=== PATIENT | male | born 1995 | race Caucasian/White ===

== ENCOUNTER 2017-09-09 19:45 | Emergency (ER) | payer BC, OTHER ==
[2017-09-09] MEDS ORDERED: predniSONE 20 MG TAB ONE (20:05)
[2017-09-09] MEDS ORDERED: hydrOXYzine 25 MG TAB ONE (20:13)
== END 2017-09-09 20:15 | disposition home or self-care (01) ==
LOC: BURERS 19:45
DX: L24.0 Irritant contact dermatitis due to detergents (principal)
CPT/HCPCS: 99283; J7506

== ENCOUNTER 2021-03-10 05:27 | Emergency (ER) | payer BC ==
[2021-03-10 06:07] LABS: #Basophils 0.1 thou/uL (0.0-0.2); #Eosinphils 0.1 thou/uL (0.0-0.7); #Lymphocytes 1.4 thou/uL (1.20-3.40); #Monocytes 0.8 thou/uL (0.11-0.59); %Basophils 0.6 % (0.0-1.0); %Eosinophils 0.7 % (0.0-10.0); %Lymphocytes 11.1 % (21.0-51.0); %Monocytes 6.3 % (0.0-10.0); %Neutrophils 81.3 % (42.0-75.0); Hemoglobin 17.2 g/dL (14.0-18.0); Mean Corpuscular HGB CONC 33.9 g/dL (32.0-36.0); Mean Corpuscular Volume 91.4 fL (78.0-98.0); Mean Platelet Volume 9.4 fL (7.4-10.4); Platelet Count 164 thou/uL (130-400); RBC Distribution Width 11.8 % (11.5-14.5); Red Blood Cell (RBC) Count 5.54 mill/uL (4.70-6.10); White Blood Cell (WBC) Count 12.3 thou/uL (4.8-10.8)
[2021-03-10 06:19] LABS: Acetaminophen Less than 6.0 mcg/mL (10.0-30.0); Alcohol Less than 10 mg/dL (Less than 10); Salicylate Less than 8.0 mg/dL (15.0-30.0)
[2021-03-10 06:21] LABS: ALT (SGPT) 20 U/L (8-55); AST (SGOT) 14 U/L (5-34); Albumin 4.9 g/dL (3.5-5.0); Alkaline Phosphatase 62 U/L (40-110); Anion Gap 16 mmol/L (10-20); BUN (Urea Nitrogen) 15 mg/dL (8.9-20.6); Bilirubin, Total 0.6 mg/dL (0.2-1.2); Calc. Creatinine Clearance 0 mL/min (70-130); Calcium 9.8 mg/dL (7.8-10.44); Carbon Dioxide 25 mmol/L (22-29); Chloride 104 mmol/L (98-107); Globulin 2.5 g/dL (2.4-3.5); Glucose 103 mg/dL (70-105); Potassium 3.7 mmol/L (3.5-5.1); Protein, Total 7.4 g/dL (6.0-8.3); Sodium 141 mmol/L (136-145)
[2021-03-10 06:36] LABS: Bilirubin Negative (Negative); Blood, Urine Negative (Negative); Clarity Cloudy (Clear); Glucose, Urine (Dipstick) Negative (Negative); Ketone, Urine Negative (Negative); Leukocyte Negative (Negative); Nitrite Negative (Negative); Protein, Urine (Dipstick) Negative (Neg-Trace); Specific Gravity, Urine 1.025 (1.005-1.030)
[2021-03-10 06:46] LABS: Amphetamine Not Detected (NotDetected); Barbiturates Screen Not Detected (NotDetected); Benzodiazepine Screen Not Detected (NotDetected); Cocaine Metabolite Screen Not Detected (NotDetected); Medtox Control Line Valid? VALID (VALID); Methadone Not Detected (NotDetected); Methamphetamine Not Detected (NotDetected); Opiate Screen Not Detected (NotDetected); Oxycodone Screen Not Detected (NotDetected); Phencyclidine (PCP) Not Detected (NotDetected); THC/Cannabinoid Screen Detected (NotDetected); Tricyclic Screen Not Detected (NotDetected)
[2021-03-10] MEDS ORDERED: Ondansetron ODT 4 MG TAB ONE (07:16)
== END 2021-03-10 09:10 | disposition home or self-care (01) ==
LOC: BURERS 05:27
DX: F12.10 Cannabis abuse, uncomplicated (principal); F14.10 Cocaine abuse, uncomplicated; F64.9 Gender identity disorder, unspecified; Z79.899 Other long term (current) drug therapy
CPT/HCPCS: 80053; 80306; 80307; 81003; 84443; 85025; 94760; Q0162

== ENCOUNTER 2021-07-13 10:08 | Emergency (ER) | payer BC, SELFPAY ==
[2021-07-13] MEDS ORDERED: cefTRIAXone\\ROCEPHIN 500 MG VIAL ONE (10:55)
[2021-07-17 21:42] LABS: Chlam.trachomatis by PCR,Urine Not Detected (NotDetected)
== END 2021-07-13 11:20 | disposition home or self-care (01) ==
LOC: BURERS 10:08
DX: N34.2 Other urethritis (principal)
CPT/HCPCS: 87491; 87591; 96372; 99283; J0696

== ENCOUNTER 2023-10-01 18:19 | Emergency (ER) | payer MEDICARE ==
[2023-10-01] MEDS ORDERED: Morphine 4 MG/ML VIAL ONE (19:09)
== END 2023-10-01 20:10 | disposition home or self-care (01) ==
LOC: BURERS 18:19
DX: M54.50 Low back pain, unspecified (principal)
CPT/HCPCS: 96372; 99283; J2270

== ENCOUNTER 2025-06-01 15:57 | Emergency (ER) | payer MEDICARE ==
[2025-06-01 16:25] LABS: Glucose, Urine (Dipstick) Negative (Negative); Leukocyte Large (Negative); Protein, Urine (Dipstick) > or equal to 300 mg/dL (Neg-Trace); Specific Gravity, Urine Greater/Equal 1.030 (1.005-1.030)
[2025-06-01 16:34] LABS: Bacteria/HPF 4+ HPF (None Seen); CAUTI Indications for Culture Dysuria,urgency,freq; RBC/HPF Greater than 50 HPF (0-3); WBC/HPF Greater Than 50 HPF (0-3)
[2025-06-01 16:35] LABS: Urine Culture Reflex Yes Yes
[2025-06-01] MEDS ORDERED: cefTRIAXone (ROCEPHIN) 500 MG VIAL ONE (16:45)
[2025-06-01] MEDS ORDERED: Azithromycin 250 MG TAB ONE (16:46)
[2025-06-03 01:04] LABS: Chlam.trachomatis by PCR,Urine *Indeterminate (NotDetected); GC N.gonorrhoeae PCR,UrineVOID DETECTED (NotDetected)
== END 2025-06-01 17:00 | disposition home or self-care (01) ==
LOC: BURERS 15:57
DX: N39.0 Urinary tract infection, site not specified (principal)
CPT/HCPCS: 81001; 87086; 87491; 87591; 96372; 99283; J0696